=== PATIENT | male | born 1960 | race Caucasian/White ===

== ENCOUNTER 2019-04-23 09:42 | Emergency (ER) | payer BC ==
[2019-04-23] MEDS ORDERED: Sodium Chloride 0.9% 1,000 ML IV ONE (10:12)
[2019-04-23] MEDS ORDERED: Ketorolac 30 MG/ML SDV IVPUSH ONE (10:12)
--- NOTE | 2019-04-23 10:47 | EDM.PDOC ---
ED HPI GENERAL MEDICAL PROBLEM - General Chief Complaint: Genitourinary Problem Stated Complaint: POSSIBLE INFECTION Time Seen by Provider: 04/23/19 09:55 Source of Information: Reports: Patient History Limitations: Reports: No Limitations - History of Present Illness INITIAL COMMENTS - FREE TEXT/NARRATIVE: HISTORY AND PHYSICAL: History of present illness: Patient is a 58-year-old male presents to the ED today with concern of left testicular swelling and pain 1 week. Patient states that the swelling has been coming and going over the course of the week that starting yesterday with more severe and painful. Patient states starting today he feels more tired and run down due to this left testicular swelling. Patient states he has a history of autonomic dysfunction and has to self catheter due to this. Patient states he sees a urologist out of [place] and has gone to [place] for this issue. Patient denies any other health history or any other symptoms or concerns. Patient denies fever, chills, chest pain, shortness of breath, or cough. Denies headache, neck stiff ness, change in vision, syncope, or near syncope. Denies nausea, vomiting, abdominal pain, diarrhea, constipation, or dysuria. Has not noted any blood in urine or stool. Patient has been eating and drinking appropriately. Review of systems: As per history of present illness and below otherwise all systems reviewed and negative. Past medical history: As per history of present illness and as reviewed below otherwise noncontributory. Surgical history: As per history of present illness and as reviewed below otherwise noncontributory. Social history: See social history for further information Family history: As per history of present illness and as reviewed below otherwise noncontributory. Physical exam: General: Patient is alert, oriented, and in no acute distress. Patient laying comfortably on exam table and tired appearing. HEENT: Atraumatic, normocephalic, pupils equal and reactive bilaterally, negative for conjunctival pallor or scleral icterus, mucous membranes moist, TMs normal bilaterally, throat clear, neck supple, nontender, trachea midline. No drooling or trismus noted. No meningeal signs. No hot potato voice noted. Lungs: Clear to auscultation, breath sounds equal bilaterally, chest nontender. Heart: S1S2, regular rate and rhythm without overt murmur Abdomen: Soft, nondistended, nontender. Negative for masses or hepatosplenomegaly. Negative for costovertebral tenderness. Pelvis: Stable nontender. Genitourinary: The left testicle is severely edematous and erythematous with severe pain with palpation. The testicle is firm and exam is limited due to pain and discomfort. The right testicle is nontender without masses. Erythema does not tract into the perineum and no pain with palpation of perineum. No penile drainage. Rectal: Deferred. Skin: Intact, warm, dry. No lesions or rashes noted. Extremities: Atraumatic, negative for cords or calf pain. Neurovascular unremarkable. Neuro: Awake, alert, oriented. Cranial nerves II through XII unremarkable. Cerebellum unremarkable. Motor and sensory unremarkable throughout. Exam nonfocal. Notes: Dr. Wilcox directly involved in patient care. Dr. Roe, urology title one teacher, consulted on patient and patients case thoroughly discussed with him. Per his recommendations will send patient home with Keflex 500 mg to take 4 times a day for a week as well as Indocin 50 mg 3 times a day for 7 days. Also to send urine for culture and have patient follow-up with Dr. Roe on Friday. Voices understanding and is agreeable to plan of care. Denies any further questions or concerns at this time. Diagnostics: CBC, CMP, UA, urine culture, lactate, blood cultures 2, scrotal with contents ultrasound Therapeutics: NS, Toradol, Rocephin Prescription: Keflex, Indocin Impression: Left epididymo-orchitis Leukocytosis Left hydrocele Plan: 1. Take medication as prescribed. You can also use Tylenol as directed for pain and discomfort. 2. Follow-up with the urologist, Dr. Roe on Friday. Call Friday to set up an appointment time. The number has been provided to you above. 3. Return to the ED as needed and as discussed. Definitive disposition and diagnosis as appropriate pending reevaluation and review of above. testicle-left Pain Score (Numeric/FACES): 0 - Related Data Allergies Allergy/AdvReac Type Severity Reaction Status Date / Time No Known Allergies Allergy Verified 05/17/16 17:39 Home Meds: Home Meds Ciprofloxacin [Ciprofloxacin HCl] 500 mg PO BID 04/23/19 [History] Past Medical History Other Gastrointestinal History: gallstones found on CT at [place] Genitourinary History: Reports: Neurogenic Bladder, UTI, Recurrent - Infectious Disease History Infectious Disease History: Reports: Chicken Pox - Past Surgical History Male Surgical History: Reports: TURP-Transurethral Resection of Prostate Musculoskeletal Surgical History: Reports: Knee Replacement, Other (See Below) Other Musculoskeletal Surgeries/Procedures:: back surgery Social & Family History - Family History Family Medical History: Noncontributory - Tobacco Use Smoking Status *Q: Never Smoker - Recreational Drug Use Recreational Drug Use: No ED ROS GENERAL - Review of Systems Review Of Systems: ROS reveals no pertinent complaints other than HPI. ED EXAM, GENERAL - Physical Exam Exam: See Below (See dictation) Course - Vital Signs Last Recorded V/S: Last Vital Signs Temp 37.2 C 04/23/19 12:46 Pulse 71 04/23/19 12:46 Resp 18 04/23/19 12:46 BP 108/51 L 04/23/19 12:46 Pulse Ox 92 L 04/23/19 12:46 - Orders/Labs/Meds Orders: Active Orders 24 hr Category Date Time Status Matos Catheter Insertion [Insert Urinary Catheter] [OM. Care 04/23/19 12:35 Ordered PC] Stat Urinary Catheter Assessment [RC] ASDIRECTED Care 04/23/19 12:49 Active Scrotal Duplex Ltd [US] Stat Exams 04/23/19 10:14 Taken CULTURE BLOOD [BC] Stat Lab 04/23/19 11:35 Received CULTURE BLOOD [BC] Stat Lab 04/23/19 11:41 Received CULTURE URINE [RM] Stat Lab 04/23/19 12:40 Received Blood Culture x2 Reflex Set [OM.PC] Stat Oth 04/23/19 10:12 Ordered Labs: Laboratory Tests 04/23/19 04/23/19 04/23/19 Range/Units 11:41 11:41 11:41 WBC 22.78 H (4.0-11.0) K/uL RBC 4.59 (4.50-5.90) M/uL Hgb 13.3 (13.0-17.0) g/dL Hct 39.8 (38.0-50.0) % MCV 86.7 (80.0-98.0) fL MCH 29.0 (27.0-32.0) pg MCHC 33.4 (31.0-37.0) g/dL RDW Std Deviation 46.6 (28.0-62.0) fl RDW Coeff of Simone 15 (11.0-15.0) % Plt Count 247 (150-400) K/uL MPV 9.20 (7.40-12.00) fL Add Manual Diff YES Neutrophils % (Manual) 84 H (48.0-80.0) % Band Neutrophils % 7 % Lymphocytes % (Manual) 5 L (16.0-40.0) % Monocytes % (Manual) 4 (0.0-15.0) % Nucleated RBC % 0.0 /100WBC Absolute Seg Neuts 19.1 H (1.4-5.7) Band Neutrophils # 1.6 Lymphocytes # (Manual) 1.1 (0.6-2.4) Monocytes # (Manual) 0.9 H (0.0-0.8) Nucleated RBCs # 0 K/uL Lactate 0.7 (0.20-2.00) mmol/L Sodium 134 L (136-148) mmol/L Potassium 3.7 (3.5-5.1) mmol/L Chloride 103 (98-107) mmol/L Carbon Dioxide 21.2 (21.0-32.0) mmol/L BUN 14 (7.0-18.0) mg/dL Creatinine 1.1 (0.8-1.3) mg/dL Est Cr Clr Drug Dosing 84.07 mL/min Estimated GFR (MDRD) > 60.0 ml/min Glucose 117 H (74-106) mg/dL Calcium 7.9 L (8.5-10.1) mg/dL Total Bilirubin 1.6 H (0.2-1.0) mg/dL AST 12 L (15-37) IU/L ALT 25 (14-63) IU/L Alkaline Phosphatase 51 (46-116) U/L Total Protein 6.2 L (6.4-8.2) g/dL Albumin 3.0 L (3.4-5.0) g/dL Globulin 3.2 (2.6-4.0) g/dL Albumin/Globulin Ratio 0.9 (0.9-1.6) Urine Color Urine Appearance Urine pH (5.0-8.0) Ur Specific Ada (1.001-1.035) Urine Protein (NEGATIVE) mg/dL Urine Glucose (UA) (NEGATIVE) mg/dL Urine Ketones (NEGATIVE) mg/dL Urine Occult Blood (NEGATIVE) Urine Nitrite (NEGATIVE) Urine Bilirubin (NEGATIVE) Urine Urobilinogen (<2.0) EU/dL Ur Leukocyte Esterase (NEGATIVE) Urine RBC (0-2/HPF) Urine WBC (0-5/HPF) Ur Squamous Epith Cells Urine Bacteria (NEGATIVE) Urine Mucus (NONE-MOD) 04/23/19 Range/Units 12:40 WBC (4.0-11.0) K/uL RBC (4.50-5.90) M/uL Hgb (13.0-17.0) g/dL Hct (38.0-50.0) % MCV (80.0-98.0) fL MCH (27.0-32.0) pg MCHC (31.0-37.0) g/dL RDW Std Deviation (28.0-62.0) fl RDW Coeff of Simone (11.0-15.0) % Plt Count (150-400) K/uL MPV (7.40-12.00) fL Add Manual Diff Neutrophils % (Manual) (48.0-80.0) % Band Neutrophils % % Lymphocytes % (Manual) (16.0-40.0) % Monocytes % (Manual) (0.0-15.0) % Nucleated RBC % /100WBC Absolute Seg Neuts (1.4-5.7) Band Neutrophils # Lymphocytes # (Manual) (0.6-2.4) Monocytes # (Manual) (0.0-0.8) Nucleated RBCs # K/uL Lactate (0.20-2.00) mmol/L Sodium (136-148) mmol/L Potassium (3.5-5.1) mmol/L Chloride (98-107) mmol/L Carbon Dioxide (21.0-32.0) mmol/L BUN (7.0-18.0) mg/dL Creatinine (0.8-1.3) mg/dL Est Cr Clr Drug Dosing mL/min Estimated GFR (MDRD) ml/min Glucose (74-106) mg/dL Calcium (8.5-10.1) mg/dL Total Bilirubin (0.2-1.0) mg/dL AST (15-37) IU/L ALT (14-63) IU/L Alkaline Phosphatase (46-116) U/L Total Protein (6.4-8.2) g/dL Albumin (3.4-5.0) g/dL Globulin (2.6-4.0) g/dL Albumin/Globulin Ratio (0.9-1.6) Urine Color YELLOW Urine Appearance HAZY Urine pH 8.5 H (5.0-8.0) Ur Specific Ada 1.010 (1.001-1.035) Urine Protein NEGATIVE (NEGATIVE) mg/dL Urine Glucose (UA) NEGATIVE (NEGATIVE) mg/dL Urine Ketones NEGATIVE (NEGATIVE) mg/dL Urine Occult Blood NEGATIVE (NEGATIVE) Urine Nitrite NEGATIVE (NEGATIVE) Urine Bilirubin NEGATIVE (NEGATIVE) Urine Urobilinogen 2.0 H (<2.0) EU/dL Ur Leukocyte Esterase SMALL H (NEGATIVE) Urine RBC 0-2 (0-2/HPF) Urine WBC 6-8 (0-5/HPF) Ur Squamous Epith Cells FEW Urine Bacteria FEW (NEGATIVE) Urine Mucus LIGHT (NONE-MOD) Meds: Medications Discontinued Medications Generic Name Dose Route Start Last Admin Trade Name Cristiano PRN Reason Stop Dose Admin Sodium Chloride 1,000 mls @ 999 mls/hr 04/23/19 10:12 04/23/19 10:24 Normal Saline IV 04/23/19 11:12 999 mls/hr STAT ONE Administration Ceftriaxone Sodium 1 gm/ 50 mls @ 200 mls/hr 04/23/19 12:39 04/23/19 13:09 Sodium Chloride IV 04/23/19 12:53 Not Given ONETIME ONE Sodium Chloride Confirm 04/23/19 12:56 04/23/19 13:09 Normal Saline Administered 04/23/19 12:57 Not Given Dose 50 mls @ as directed .ROUTE .STK-MED ONE Sodium Chloride Confirm 04/23/19 12:59 04/23/19 13:09 Normal Saline Administered 04/23/19 13:00 Not Given Dose 50 mls @ as directed .ROUTE .STK-MED ONE Ceftriaxone Sodium 1 gm/ 50 mls @ 100 mls/hr 04/23/19 13:00 04/23/19 13:08 Sodium Chloride IV 04/23/19 13:29 100 mls/hr ONETIME ONE Administration Ketorolac Tromethamine 30 mg 04/23/19 10:12 04/23/19 10:26 Toradol IVPUSH 04/23/19 10:13 30 mg ONETIME ONE Administration Departure - Departure Time of Disposition: 13:01 Disposition: Home, Self-Care 01 Clinical Impression: Epididymo-orchitis, acute, Left hydrocele Leukocytosis Qualifiers: Leukocytosis type: unspecified Qualified Code(s): D72.829 - Elevated white blood cell count, unspecified - Discharge Information Instructions: Hydrocele, Adult, Orchitis Referrals: PCP,Unknown [Primary Care Provider] - Forms: ED Department Discharge Additional Instructions: The following information is given to patients seen in the emergency department who are being discharged to home. This information is to outline your options for follow-up care. We provide all patients seen in our emergency department with a follow-up referral. The need for follow-up, as well as the timing and circumstances, are variable depending upon the specifics of your emergency department visit. If you don't have a primary care physician on staff, we will provide you with a referral. We always advise you to contact your personal physician following an emergency department visit to inform them of the circumstance of the visit and for follow-up with them and/or the need for any referrals to a consulting specialist. The emergency department will also refer you to a specialist when appropriate. This referral assures that you have the opportunity for follow-up care with a specialist. All of these measure are taken in an effort to provide you with optimal care, which includes your follow-up. Under all circumstances we always encourage you to contact your private physician who remains a resource for coordinating your care. When calling for follow-up care, please make the office aware that this follow-up is from your recent emergency room visit. If for any reason you are refused follow-up, please contact the [facility] Emergency Department at and asked to speak to the emergency department charge nurse. [facility] [address] [place] [id number] [address] [facility] - Urology [address] [place] [id number] 1. Take medication as prescribed. You can also use Tylenol as directed for pain and discomfort. 2. Follow-up with the urologist, Dr. Roe on Friday. Call Friday to set up an appointment time. The number has been provided to you above. 3. Return to the ED as needed and as discussed. - My Orders Last 24 Hours: My Active Orders 04/23/19 10:12 Blood Culture x2 Reflex Set [OM.PC] Stat 04/23/19 10:14 Scrotal Duplex Ltd [US] Stat 04/23/19 11:35 CULTURE BLOOD [BC] Stat 04/23/19 11:41 CULTURE BLOOD [BC] Stat 04/23/19 12:35 Matos Catheter Insertion [Insert Urinary Catheter] [OM.PC] Stat 04/23/19 12:40 CULTURE URINE [RM] Stat 04/23/19 12:49 Urinary Catheter Assessment [RC] ASDIRECTED - Assessment/Plan Last 24 Hours: My Active Orders 04/23/19 10:12 Blood Culture x2 Reflex Set [OM.PC] Stat 04/23/19 10:14 Scrotal Duplex Ltd [US] Stat 04/23/19 11:35 CULTURE BLOOD [BC] Stat 04/23/19 11:41 CULTURE BLOOD [BC] Stat 04/23/19 12:35 Matos Catheter Insertion [Insert Urinary Catheter] [OM.PC] Stat 04/23/19 12:40 CULTURE URINE [RM] Stat 04/23/19 12:49 Urinary Catheter Assessment [RC] ASDIRECTED
[2019-04-23 12:09] LABS: BLOOD UREA NITROGEN,BUN 14 mg/dL (7.0-18.0); CARBON DIOXIDE,CO2 21.2 mmol/L (21.0-32.0); CHLORIDE,CL 103 mmol/L (98-107); GLUCOSE RANDOM 117 mg/dL (74-106); POTASSIUM,K 3.7 mmol/L (3.5-5.1); SODIUM,NA 134 mmol/L (136-148)
[2019-04-23] MEDS ORDERED: cefTRIAXone 1 GM in Sodium Chloride 0.9% 50 ML IV ONE ×2 (12:39→13:00)
[2019-04-23 12:46] VITALS: PULSE 71
[2019-04-23] MEDS ORDERED: Sodium Chloride 0.9% 50 ML ONE ×2 (12:56→12:59)
--- NOTE | 2019-04-23 16:47 | US ---
INDICATION: Left testicular pain for several days, increased today. TECHNIQUE: Conventional two-dimensional grayscale ultrasound of the scrotum as well color-flow and pulsed Doppler of the testes. COMPARISON: None. FINDINGS: The right testis measures 4.2 x 3.3 x 2.6 cm and the left 5.6 x 3.8 x 3.7 cm. The testicular parenchyma is normal in echogenicity. Color flow Doppler demonstrates mild left epididymal and testicular hyperemia, consistent with epididymo-orchitis. The left epididymis is enlarged. No other epididymal abnormality is demonstrated. A hydrocele of small to moderate size is noted on the left. Fluid is present in the right scrotum but the quadrant the does not qualify as a hydrocele. No varicocele is apparent. IMPRESSION: Apparent left epididymo-orchitis and left hydrocele of small to moderate size. Dictated by Constantin Hawley MD @ Apr 23 2019 11:30AM Signed by Dr. Constantin Hawley @ Apr 23 2019 11:41AM Dictated by: Constantin Hawley MD 04/23/19 at 1141 MTDD
[2019-04-23 18:01] VITALS: BP 109/49
== END 2019-04-23 14:05 | disposition home or self-care (01) ==
LOC: MW.ED 09:42
DX: N45.3 Epididymo-orchitis (principal); N43.3 Hydrocele, unspecified; D72.829 Elevated white blood cell count, unspecified; Z79.899 Other long term (current) drug therapy
CPT/HCPCS: 36415; 76870; 80053; 81001; 83605; 85025; 87040; 87086; 93976; 96361; 96365; 96375; 99284; J0696; J1885; J7040; J7050

== ENCOUNTER 2019-05-06 20:18 | Emergency (ER) | payer BC ==
[2019-05-06] MEDS ORDERED: Sodium Chloride 0.9% 10 ML Syringe FLUSH PRN (20:55)
[2019-05-06] MEDS ORDERED: Sodium Chloride 0.9% 2.5 ML Syringe FLUSH PRN (20:55)
--- NOTE | 2019-05-06 21:07 | EDM.PDOC ---
ED HPI GENERAL MEDICAL PROBLEM - General Chief Complaint: General Stated Complaint: DISORIENTED Time Seen by Provider: 05/06/19 20:49 Source of Information: Reports: Patient History Limitations: Reports: No Limitations - History of Present Illness INITIAL COMMENTS - FREE TEXT/NARRATIVE: HISTORY AND PHYSICAL: History of present illness: Patient is a 58-year-old male presents to the ED via EMS with complaint of syncopal episode. Family member states that they were sitting at a table when patient passed out for 20-25 minutes. Patient states that he felt dizzy and lights got bright right before he passed out. As soon as ambulance arrived and he was put on the stretcher he regained consciousness. He states he is feeling well now. He denies chest pain, shortness of breath, abdominal pain, nausea, vomiting, diarrhea, fevers, chills. He has a history of autonomic neuropathy and has had syncopal episodes in the past but usually occurs after standing and only briefly. He notes that he does tend to pass out when he has an infection. He is currently taking antibiotics for a UTI. He does straight cath due to the autonomic neuropathy. Review of systems: As per history of present illness and below otherwise all systems reviewed and negative. Past medical history: As per history of present illness and as reviewed below otherwise noncontributory. Surgical history: As per history of present illness and as reviewed below otherwise noncontributory. Social history: No reported history of drug or alcohol abuse. Family history: As per history of present illness and as reviewed below otherwise noncontributory. Physical exam: General: Patient sitting comfortably in no acute distress and nontoxic appearing HEENT: Atraumatic, normocephalic, pupils reactive, negative for conjunctival pallor or scleral icterus, mucous membranes moist, throat clear, neck supple, nontender, trachea midline. No meningeal signs. Lungs: Clear to auscultation, breath sounds equal bilaterally, chest nontender. Heart: S1S2, regular, negative for clicks, rubs, or overt murmur. Abdomen: Soft, nondistended, nontender. Negative for masses or hepatosplenomegaly. Negative for costovertebral tenderness. No rigidity, rebound , guarding. Pelvis: Stable nontender. Genitourinary: Deferred. Rectal: Deferred. Extremities: Atraumatic, negative for cords or calf pain. Neurovascular unremarkable. Neuro: Awake, alert, oriented. Cranial nerves II through XII unremarkable. Cerebellum unremarkable. Motor and sensory unremarkable throughout. Exam nonfocal. Notes: Patient offered admission for observation which he declined at this time. Diagnostics: CBC, CMP, Troponin, TSH, UA, EKG, Head CT Therapeutics: 1L NS IV Prescriptions: Impression: Syncope Plan: Follow up with primary care provider Return to ED as needed as discussed Definitive disposition and diagnosis as appropriate pending reevaluation and review of above. Treatments OPAL POLISHER: Reports: IV/IO - Related Data Allergies Allergy/AdvReac Type Severity Reaction Status Date / Time No Known Allergies Allergy Verified 05/06/19 20:34 Home Meds: Home Meds Ciprofloxacin [Ciprofloxacin HCl] 500 mg PO BID 04/23/19 [History] Past Medical History HEENT History: Reports: Impaired Vision, Other (See Below) Other HEENT History: wears glasses Other Gastrointestinal History: gallstones found on CT at [place] Genitourinary History: Reports: Neurogenic Bladder, UTI, Recurrent Endocrine/Metabolic History: Reports: Obesity/BMI 30+ - Infectious Disease History Infectious Disease History: Reports: Chicken Pox - Past Surgical History Male Surgical History: Reports: TURP-Transurethral Resection of Prostate Musculoskeletal Surgical History: Reports: Knee Replacement, Other (See Below) Other Musculoskeletal Surgeries/Procedures:: back surgery Social & Family History - Family History Family Medical History: Noncontributory - Tobacco Use Smoking Status *Q: Never Smoker - Recreational Drug Use Recreational Drug Use: No ED ROS GENERAL - Review of Systems Review Of Systems: ROS reveals no pertinent complaints other than HPI. ED EXAM, GENERAL - Physical Exam Exam: See Below (see dictation) Course - Vital Signs Last Recorded V/S: Last Vital Signs Temp 96.3 F 05/06/19 20:18 Pulse 62 05/06/19 20:59 Resp 14 05/06/19 20:59 BP 122/70 05/06/19 20:59 Pulse Ox 93 L 05/06/19 20:59 - Orders/Labs/Meds Orders: Active Orders 24 hr Category Date Time Status Cardiac Monitoring [RC] . DIRECTED Care 05/06/19 20:55 Active EKG 12 Lead [EKG Documentation Completion] [RC] STAT Care 05/06/19 20:44 Active Orthostatic Vital Signs [RC] ASDIRECTED Care 05/06/19 20:55 Active Oxygen Therapy, ED [RC] ASDIRECTED Care 05/06/19 20:55 Active Pulse Oximetry [RC] ASDIRECTED Care 05/06/19 20:55 Active Sodium Chloride 0.9% [Saline Flush] Med 05/06/19 20:55 Active 10 ml FLUSH ASDIRECTED PRN Sodium Chloride 0.9% [Saline Flush] Med 05/06/19 20:55 Active 2.5 ml FLUSH ASDIRECTED PRN Saline Lock Insert [OM.PC] Stat Oth 05/06/19 20:55 Ordered Medication Orders Sodium Chloride (Saline Flush) 10 ml FLUSH ASDIRECTED PRN PRN Reason: Keep Vein Open Last Admin: 05/06/19 21:01 Dose: 10 ml Sodium Chloride (Saline Flush) 2.5 ml FLUSH ASDIRECTED PRN PRN Reason: Keep Vein Open Last Admin: 05/06/19 21:02 Dose: 2.5 ml Labs: Laboratory Tests 05/06/19 05/06/19 05/06/19 Range/Units 20:48 20:55 22:42 WBC 9.35 (4.0-11.0) K/uL RBC 4.93 (4.50-5.90) M/uL Hgb 14.2 (13.0-17.0) g/dL Hct 43.0 (38.0-50.0) % MCV 87.2 (80.0-98.0) fL MCH 28.8 (27.0-32.0) pg MCHC 33.0 (31.0-37.0) g/dL RDW Std Deviation 46.8 (28.0-62.0) fl RDW Coeff of Simone 15 (11.0-15.0) % Plt Count 259 (150-400) K/uL MPV 9.40 (7.40-12.00) fL Neut % (Auto) 68.2 (48.0-80.0) % Lymph % (Auto) 20.2 (16.0-40.0) % [place] % (Auto) 9.2 (0.0-15.0) % Eos % (Auto) 1.8 (0.0-7.0) % Baso % (Auto) 0.6 (0.0-1.5) % Neut # (Auto) 6.4 H (1.4-5.7) K/uL Lymph # (Auto) 1.9 (0.6-2.4) K/uL [place] # (Auto) 0.9 H (0.0-0.8) K/uL Eos # (Auto) 0.2 (0.0-0.7) K/uL Baso # (Auto) 0.1 (0.0-0.1) K/uL Nucleated RBC % 0.0 /100WBC Nucleated RBCs # 0 K/uL Sodium 140 (136-148) mmol/L Potassium 4.1 (3.5-5.1) mmol/L Chloride 103 (98-107) mmol/L Carbon Dioxide 24.6 (21.0-32.0) mmol/L BUN 18 (7.0-18.0) mg/dL Creatinine 1.6 H (0.8-1.3) mg/dL Est Cr Clr Drug Dosing 57.80 mL/min Estimated GFR (MDRD) 44.5 ml/min Glucose 119 H (74-106) mg/dL Calcium 9.3 (8.5-10.1) mg/dL Total Bilirubin 0.9 (0.2-1.0) mg/dL AST 23 (15-37) IU/L ALT 44 (14-63) IU/L Alkaline Phosphatase 82 (46-116) U/L Troponin I < 0.050 (0.000-0.056) ng/mL Total Protein 7.4 (6.4-8.2) g/dL Albumin 3.5 (3.4-5.0) g/dL Globulin 3.9 (2.6-4.0) g/dL Albumin/Globulin Ratio 0.9 (0.9-1.6) TSH 3rd Generation 2.78 (0.36-3.74) uIU/mL Urine Color YELLOW Urine Appearance CLEAR Urine pH 6.5 (5.0-8.0) Ur Specific [place] 1.010 (1.001-1.035) Urine Protein TRACE H (NEGATIVE) mg/dL Urine Glucose (UA) NEGATIVE (NEGATIVE) mg/dL Urine Ketones NEGATIVE (NEGATIVE) mg/dL Urine Occult Blood TRACE-INTACT H (NEGATIVE) Urine Nitrite NEGATIVE (NEGATIVE) Urine Bilirubin NEGATIVE (NEGATIVE) Urine Urobilinogen 0.2 (<2.0) EU/dL Ur Leukocyte Esterase NEGATIVE (NEGATIVE) Urine RBC 1-2 (0-2/HPF) Urine WBC 0-1 (0-5/HPF) Ur Epithelial Cells RARE (NONE-FEW) Urine Bacteria RARE (NEGATIVE) Meds: Medications Generic Name Dose Route Start Last Admin Trade Name Freq PRN Reason Stop Dose Admin Sodium Chloride 10 ml 05/06/19 20:55 05/06/19 21:01 Saline Flush FLUSH 10 ml ASDIRECTED PRN Administration Keep Vein Open Sodium Chloride 2.5 ml 05/06/19 20:55 05/06/19 21:02 Saline Flush FLUSH 2.5 ml ASDIRECTED PRN Administration Keep Vein Open Departure - Departure Time of Disposition: 22:52 Disposition: Home, Self-Care 01 Condition: Good Clinical Impression: Syncope - Discharge Information Referrals: PCP,None [Primary Care Provider] - Forms: ED Department Discharge Additional Instructions: The following information is given to patients seen in the emergency department who are being discharged to home. This information is to outline your options for follow-up care. We provide all patients seen in our emergency department with a follow-up referral. The need for follow-up, as well as the timing and circumstances, are variable depending upon the specifics of your emergency department visit. If you don't have a primary care physician on staff, we will provide you with a referral. We always advise you to contact your personal physician following an emergency department visit to inform them of the circumstance of the visit and for follow-up with them and/or the need for any referrals to a consulting specialist. The emergency department will also refer you to a specialist when appropriate. This referral assures that you have the opportunity for follow-up care with a specialist. All of these measure are taken in an effort to provide you with optimal care, which includes your follow-up. Under all circumstances we always encourage you to contact your private physician who remains a resource for coordinating your care. When calling for follow-up care, please make the office aware that this follow-up is from your recent emergency room visit. If for any reason you are refused follow-up, please contact the [facility] Emergency Department at and asked to speak to the emergency department charge nurse. [facility] [address] [place] [address] [place] [id number] [address] [id number] Follow up with primary care provider Return to ED as needed as discussed
[2019-05-06 21:24] LABS: BLOOD UREA NITROGEN,BUN 18 mg/dL (7.0-18.0); CARBON DIOXIDE,CO2 24.6 mmol/L (21.0-32.0); CHLORIDE,CL 103 mmol/L (98-107); GLUCOSE RANDOM 119 mg/dL (74-106); POTASSIUM,K 4.1 mmol/L (3.5-5.1); SODIUM,NA 140 mmol/L (136-148)
--- NOTE | 2019-05-06 21:25 | CT ---
INDICATION: Found unresponsive TECHNIQUE: Head CT without contrast. COMPARISON: None FINDINGS: CSF spaces: Within normal limits for age. 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 Brain parenchyma: Normal doran-white junction. No sign of mass, hemorrhage, or midline shift. Skull base and calvarium: The visualized paranasal sinuses and mastoid air cells demonstrate no acute or significant findings. The visualized orbits are grossly unremarkable. No skull fractures. IMPRESSION: No acute abnormality. Please note that all CT scans at this facility use dose modulation, iterative reconstruction, and/or weight-based dosing when appropriate to reduce radiation dose to as low as reasonably achievable. Dictated by Alice Walker MD @ May 06 2019 9:25PM Signed by Dr. Alice Walker @ May 06 2019 9:25PM
--- NOTE | 2019-05-06 21:56 | CR ---
INDICATION: Unresponsive and nonverbal TECHNIQUE: Chest 1 view COMPARISON: None FINDINGS: Cardiovascular and mediastinum: Heart size and vasculature are normal in caliber and appearance. Lungs and pleural spaces: Lungs are clear. No sign of infiltrate or mass. No sign of pleural effusion. No pneumothorax. Bones and soft tissues: No significant findings. IMPRESSION: No acute or significant findings. Dictated by Kenneth Posada MD @ May 06 2019 9:53PM Signed by Dr. Kenneth Posada @ May 06 2019 9:53PM
[2019-05-06 23:09] VITALS: BP 111/60; PULSE 81
== END 2019-05-06 23:09 | disposition home or self-care (01) ==
LOC: MW.ED 20:18
DX: R55 Syncope and collapse (principal); E66.9 Obesity, unspecified; Z68.38 Body mass index [BMI] 38.0-38.9, adult
CPT/HCPCS: 36415; 70450; 70450-26; 71045; 71045-26; 80053; 81001; 84443; 84484; 85025; 93005; 99283; 99285-25

== ENCOUNTER 2019-11-25 11:01 | Emergency (ER) | payer BC, OTHER ==
[2019-11-25] MEDS ORDERED: Diphtheria,Pertussis(Acell),Tetanus Vaccine 0.5 ML Syringe IM ONE (11:03)
[2019-11-25] MEDS ORDERED: fentaNYL 50 MCG/ML SDV IVPUSH ONE ×3 (11:03→12:17)
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
[2019-11-25] MEDS ORDERED: Iopamidol 755 MG/ML 500 ML Multipack Bottle IVPUSH STA (11:36)
--- NOTE | 2019-11-25 11:44 | CT ---
CT cervical spine Technique: Multiple axial sections were obtained from above C1 inferiorly through the T1-2 disc level. Reconstructed coronal and sagittal images were obtained. Comparison: No prior cervical spine imaging is available. Findings: Facial trauma is noted which will be described on facial CT exam. Nondisplaced fracture is noted at the base of the dens process of C2. No additional fracture is appreciated. Scattered degenerative change is noted. No abnormal subluxation is seen. Impression: 1. Nondisplaced fracture involving the base of the dens of C2. This is an unstable injury. 2. Scattered degenerative change. No other acute abnormality is seen within the cervical spine. Diagnostic code #5 This report was dictated in MDT
[2019-11-25 11:49] LABS: BLOOD UREA NITROGEN,BUN 21 mg/dL (7.0-18.0); CARBON DIOXIDE,CO2 23.8 mmol/L (21.0-32.0); CHLORIDE,CL 105 mmol/L (98-107); GLUCOSE RANDOM 130 mg/dL (74-106); POTASSIUM,K 4.2 mmol/L (3.5-5.1); SODIUM,NA 140 mmol/L (136-148)
[2019-11-25] MEDS ORDERED: Sodium Chloride 0.9% 1,000 ML IV ONE (12:00)
--- NOTE | 2019-11-25 12:02 | CT ---
CT facial bones Technique: Multiple axial sections through the facial bones were obtained. Reconstructed coronal and sagittal images were obtained. Findings: Soft tissue swelling is noted around the right periorbital region. Comminuted fracture is noted within the right zygomatic arch with minimal displacement. Single fractur is e noted within the left zygomatic arch. Displaced fracture is noted within the mandible on the left side of midline. Displacement measures 6.7 mm. Mandibular condyle slightly shifted laterally within the temporomandibular joint on the right side. 2 fractures are seen within the left squamous portion of the temporal bone as well as fracture within the squamous portion of the right temporal bone. Soft tissue air is seen within the scalp. Small amount of air noted within both temporal lobes. Fluid is seen within the maxillary and ethmoid as well as sphenoid sinus most likely representing blood. No fractures are seen within the paranasal sinuses. Fracture identified within the lateral right orbital wall with small amount of air is seen within the right orbit. No left-sided orbital fracture is definitely appreciated. Fracture is noted at the base of the dens of C2. Impression: 1. Diffuse periorbital soft tissue swelling on the right side. 2. Zygomatic arch fractures on both sides. 3. Displaced fracture within the anterior left side of the mandible. Mild subluxation of the right temporomandibular joint is seen. 4. Nondisplaced fracture within the right lateral orbital wall. 5. C2 fracture involving the dens. 6. Fractures involving the squamous portions of both temporal bones. Diagnostic code #5 This report was dictated in MDT
--- NOTE | 2019-11-25 12:02 | CT ---
Head CT Technique: Multiple axial sections through the brain were obtained. Intravenous contrast was not utilized. Findings: Diffuse scalp injury is seen. Small amount of subdural blood is seen within the right frontal region. Thickness is approximately 2-3 mm. Extra-axial blood is also noted within the right temporal region. Small amount of blood extends into the sulci of the right temporal lobe. No other intracranial hemorrhage is seen. No midline shift or mass is seen. Facial trauma is noted which will be described on facial CT exam. Fracture noted within the right temporal bone with very minimal displacement. 2 adjacent fractures are noted within the left temporal bone. Minimal intracranial air is seen within the left temporal region. Within both temporal regions. Impression: 1. Facial bone trauma which will be described on CT facial bone study. 2. Small subdural hematoma is noted within the right frontal region. Small amount of subdural blood is noted within the right temporal region as well as a small amount of subarachnoid blood extending into the sulci within the right temporal lobe. 3. No midline shift is seen. 4. Temporal bone fractures as noted above. Small amount of intracranial air is noted within both temporal regions. Diagnostic code #5 This report was dictated in MDT
[2019-11-25] MEDS ORDERED: ceFAZolin 1 GM in Premix Bag 1 BAG IV ONE (12:11)
[2019-11-25 12:27] VITALS: BP 178/97; PULSE 57
[2019-11-25] MEDS ORDERED: Midazolam 1 MG/ML 2 ML SDV ONE (12:30)
--- NOTE | 2019-11-25 12:30 | CR ---
Chest: Supine portable view of the chest was obtained. Comparison: Prior CT chest study of 11/25/19 and chest x-ray of 05/06/19. Heart size at the upper limits of normal. Lung markings are mildly increased which appeared to be chronic. No acute parenchymal change is appreciated. No gross bony abnormality is appreciated. Impression: 1. Nothing acute is seen on supine portable chest x-ray. Diagnostic code #2 This report was dictated in MDT
--- NOTE | 2019-11-25 12:30 | CR ---
Pelvis: AP portable view of the pelvis was obtained. Comparison: Previous CT abdomen and pelvis study performed earlier on the same day. Findings: Contrast is noted within the bladder from CT exam performed earlier. Joint spaces within both hips are maintained. Mild degenerative change is partially visualized within the spine. Bony structures are slightly osteopenic. No acute fracture or other abnormality is appreciated. Impression: 1. Findings as noted above. 2. Nothing acute is identified on AP portable chest x-ray. Diagnostic code #2 This report was dictated in MDT
--- NOTE | 2019-11-25 12:36 | CT ---
CT abdomen and pelvis Technique: Multiple axial sections were obtained from above the dome of the diaphragm inferiorly through the pubic symphysis. Intravenous contrast was utilized. No oral contrast has been given. Comparison: No prior abdominal or pelvic CT exam is available. Findings: Interstitial change is noted within both lung bases most likely chronic. Small low density finding is noted within the dome of the right lobe of the liver measuring 1.1 cm which is too small to characterize by Hounsfield unit measurements but most likely is incidental as no additional liver lesion is seen. Spleen appears within normal limits. Kidneys show symmetric contrast enhancement. Small cyst is noted within the right kidney measuring 9 mm. Smaller abnormality is seen within the upper right kidney measuring 4 mm. This also most likely represents a small cyst. Adrenal glands show no nodule. Pancreas shows no discrete abnormality. Gallbladder shows minimal increased density presumably due to gallstones. Aorta shows mild atherosclerotic calcification without aneurysm. No retroperitoneal adenopathy or mesenteric abnormalities are seen. Small fat-containing umbilical hernia is noted. No pelvic mass or adenopathy is seen. No free fluid or inflammatory change is appreciated. Appendix not visualized with certainty. Bone window settings were reviewed which shows diffuse degenerative change throughout the visualized spine. No acute osseous finding is appreciated. Impression: 1. Findings as noted above. 2. Nothing acute is appreciated on CT study of the abdomen and pelvis. Diagnostic code #2 This report was dictated in MDT
--- NOTE | 2019-11-25 12:38 | CT ---
CT chest Technique: Multiple axial sections were obtained from above the lung apices inferiorly through the lung bases. Intravenous contrast was utilized. Reconstructed coronal and sagittal images were obtained. Aorta appears within normal limits without aneurysm. No mediastinal hematoma seen. No adenopathy is identified. Mild coronary artery calcification is noted. No pericardial thickening is seen. Increased density within gallbladder presumably due to gallstones. No axillary adenopathy is seen. Lungs show no acute parenchymal change. No pleural effusions or pneumothorax are seen. No acute osseous finding is appreciated. Impression: 1. Findings as noted above. 2. Nothing acute is appreciated on CT study of the chest. Diagnostic code #2 This report was dictated in MDT
[2019-11-25] MEDS ORDERED: Midazolam 1 MG/ML 2 ML SDV IVPUSH ONE (12:42)
--- NOTE | 2019-11-25 13:01 | CR ---
Chest: Portable view of the chest was obtained. Comparison: Prior chest x-ray performed earlier on the same day (11:52 AM). Diffuse increased lung markings are again noted which are stable. Heart is slightly enlarged. Endotracheal tube is seen with tip lying slightly below the inferior clavicles in satisfactory position. Bony structures are grossly intact. Impression: 1. Tip of endotracheal tube satisfactory in position. 2. Other portions of the chest are stable from previous exam. Diagnostic code #3 This report was dictated in MDT
[2019-11-25] MEDS ORDERED: Rocuronium 50 MG/5 ML Vial IVPUSH ONE (14:07)
[2019-11-25] MEDS ORDERED: Etomidate 2 MG/ML 20 ML SDV IVPUSH ONE (14:09)
== END 2019-11-25 13:06 ==
LOC: MW.ED 11:01
DX: S06.5X0A Traumatic subdural hemorrhage without loss of consciousness, initial encounter (principal); S12.110A Anterior displaced Type II dens fracture, initial encounter for closed fracture; E66.9 Obesity, unspecified; Z68.38 Body mass index [BMI] 38.0-38.9, adult; Z23 Encounter for immunization; V86.59XA Driver of other special all-terrain or other off-road motor vehicle injured in nontraffic accident, initial encounter
CPT/HCPCS: 31500; 70450; 70486; 71045; 71260; 72125; 72170; 74177; 80053; 81003; 83735; 85025; 85610; 85730; 86850; 86900; 86901; 90471; 90715; 93005; 96365; 99291; G0390; J0330; J0690; J2250; J3010; J3490; J7030; Q9967; 99285

== ENCOUNTER 2019-12-16 11:49 | Emergency (ER) | payer BC ==
[2019-12-16] MEDS ORDERED: Sodium Chloride 0.9% 2.5 ML Syringe FLUSH PRN (12:04)
[2019-12-16] MEDS ORDERED: Sodium Chloride 0.9% 10 ML Syringe FLUSH PRN (12:04)
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
[2019-12-16 12:52] LABS: BLOOD UREA NITROGEN,BUN 13 mg/dL (7.0-18.0); CARBON DIOXIDE,CO2 26.1 mmol/L (21.0-32.0); CHLORIDE,CL 103 mmol/L (98-107); GLUCOSE RANDOM 114 mg/dL (74-106); POTASSIUM,K 3.9 mmol/L (3.5-5.1); SODIUM,NA 140 mmol/L (136-148)
[2019-12-16 14:11] VITALS: BP 156/59; PULSE 60
== END 2019-12-16 14:00 | disposition home or self-care (01) ==
LOC: MW.ED 11:49
DX: Z00.00 Encounter for general adult medical examination without abnormal findings (principal); E66.9 Obesity, unspecified; Z68.34 Body mass index [BMI] 34.0-34.9, adult
CPT/HCPCS: 36415; 51702; 80053; 81003; 84484; 85025; 93005; 99283; 99284-25

== ENCOUNTER 2020-03-23 19:39 | Emergency (ER) | payer BC, OTHER ==
[2020-03-23] MEDS ORDERED: Dexamethasone 10 MG/ML SDV PO STA (20:04)
--- NOTE | 2020-03-23 20:08 | EDM.PDOC ---
<Marcie Yo - Last Filed: 03/27/20 10:42> ED HPI GENERAL MEDICAL PROBLEM - General Chief Complaint: Respiratory Problem Stated Complaint: positive covid Time Seen by Provider: 03/23/20 19:45 Source of Information: Reports: Patient History Limitations: Reports: No Limitations - History of Present Illness INITIAL COMMENTS - FREE TEXT/NARRATIVE: HISTORY AND PHYSICAL: History of present illness: Patient is a 59-year-old male, with known COVID positive testing that was done on 11 March, who presents to the emergency room today with increased shortness of breath that started today. Patient states that he feels tired and rundown and feels more short of breath. Patient states he tested positive for COVID at [facility]. Patient states he called the clinic today and was told to come to the emergency room due to worsening symptoms. Patient states he has a history of autonomic hypotension, low heart rate and issues with his prostate. He states that he is on medication to raise his blood pressure and as well as taken medication to try to improve his heart rate but has not had much success with this. Patient denies fever, chills, chest pain. Denies headache, neck stiff ness, change in vision, syncope, or near syncope. Denies nausea, vomiting, abdominal pain, diarrhea, constipation, or dysuria. Has not noted any blood in urine or stool. Patient has been eating and drinking appropriately. Review of systems: As per history of present illness and below otherwise all systems reviewed and negative. Past medical history: As per history of present illness and as reviewed below otherwise noncontributory. Surgical history: As per history of present illness and as reviewed below otherwise noncontributory. Social history: See social history for further information Family history: As per history of present illness and as reviewed below otherwise noncontributory. Physical exam: General: Patient is alert, oriented, and in no acute distress. Patient laying comfortably on exam table. HEENT: Atraumatic, normocephalic, pupils equal and reactive bilaterally, negative for conjunctival pallor or scleral icterus, mucous membranes moist, TMs normal bilaterally, throat clear, neck supple, nontender, trachea midline. No drooling or trismus noted. No meningeal signs. No hot potato voice noted. Lungs: Patient speaking clearly without breathlessness, no wheezing or stridor, no accessory muscle use or respiratory distress. Auscultation deferred due to current COV-ID 19 outbreak. Heart: Auscultation deferred Abdomen: Nondistended. Pelvis: Stable nontender. Genitourinary: Deferred. Rectal: Deferred. Skin: Intact, warm, dry. No lesions or rashes noted. Extremities: Atraumatic, negative for cords or calf pain. Neurovascular unremarkable. Neuro: Awake, alert, oriented. Cranial nerves II through XII unremarkable. Cerebellum unremarkable. Motor and sensory unremarkable throughout. Exam nonfocal. Notes: O2 upon arrival 86%. 3L NC placed and 88%. 6L NC and 90%. Dr. Dias has assumed care of patient and will follow remaining diagnostics and disposition. Diagnostics: CBC, CMP, UA, EKG, chest x-ray, troponin, CPK, CK, PT/INR, PTT, fibrinogen, Lactate, ddimer, VBG, Ang CT Therapeutics: Oxygen, Dexamethasone Impression: Hypoxia Viral pneumonia Plan: Definitive disposition and diagnosis as appropriate pending reevaluation and review of above. no pain Pain Score (Numeric/FACES): 0 - Related Data Allergies Allergy/AdvReac Type Severity Reaction Status Date / Time No Known Allergies Allergy Verified 03/23/20 19:46 Home Meds: Home Meds Ascorbic Acid [Vitamin C] 1,000 mg PO BID 03/23/20 [History] Aspirin 325 mg PO DAILY 03/23/20 [History] Cholecalciferol (Vitamin D3) [Vitamin D3] 2,000 unit IU 03/23/20 [History] Cranberry 0 mg PO DAILY 03/23/20 [History] Fludrocortisone [Fludrocortisone Acetate] 0.1 mg PO DAILY 03/23/20 [History] Midodrine 5 mg PO BID 03/23/20 [History] Multivitamin [Multivitamins] 1 each PO DAILY 03/23/20 [History] Bailey-3/DHA/Epa/Fish Oil [Bailey 3 500 Softgel] 1 each PO DAILY 03/23/20 [History] Zinc 50 mg PO BID 03/23/20 [History] Past Medical History HEENT History: Reports: Impaired Vision, Other (See Below) Other HEENT History: wears glasses Cardiovascular History: Reports: Other (See Below) Other Cardiovascular History: Autonomic hypotension Respiratory History: Reports: None Other Gastrointestinal History: gallstones found on CT at [place] Genitourinary History: Reports: Neurogenic Bladder, UTI, Recurrent Neurological History: Reports: Neuropathy, Peripheral, Other (See Below) Other Neuro History: autonomic hypotension, inability to sweat except on head Psychiatric History: Reports: None Endocrine/Metabolic History: Reports: Obesity/BMI 30+ Hematologic History: Reports: None - Infectious Disease History Infectious Disease History: Reports: Chicken Pox - Past Surgical History HEENT Surgical History: Reports: Other (See Below) Other HEENT Surgeries/Procedures: jaw surg GI Surgical History: Reports: Appendectomy Male Surgical History: Reports: TURP-Transurethral Resection of Prostate Other Male Surgeries/Procedures: patient self caths Musculoskeletal Surgical History: Reports: Knee Replacement, Other (See Below) Other Musculoskeletal Surgeries/Procedures:: back surgery Social & Family History - Family History Family Medical History: Noncontributory - Tobacco Use Smoking Status *Q: Never Smoker - Caffeine Use Caffeine Use: Reports: None - Recreational Drug Use Recreational Drug Use: No ED ROS GENERAL - Review of Systems Review Of Systems: Comprehensive ROS is negative, except as noted in HPI. ED EXAM, GENERAL - Physical Exam Exam: See Below (see dictation) Departure - Departure Disposition: DC/Tfer to [facility] With [facility] 02 Clinical Impression: Viral pneumonia, Hypoxia - Discharge Information Referrals: PCP,None [Primary Care Provider] - Forms: ED Department Discharge Sepsis Event Note (ED) - Evaluation Sepsis Screening Result: No Definite Risk <Salvatore Dias - Last Filed: 04/04/20 07:04> Course - Vital Signs Text/Narrative:: See my separate supervisory note from the same date of service. Limited physical examination was performed due to COVID pandemic, distanced physical examination to prevent physician exposure and to preserve PPE. Vital signs reviewed. Nursing notes reviewed. Constitutional: Awake, alert, non-distressed. Head: Normocephalic, atraumatic. Eyes: No scleral icterus. Neck: Able to fully flex and extend. Fully rotates side to side. Cardiovascular: No extremity edema. Pulmonary: normal work of breathing, no accessory muscle use. Speaking in full sentences, handling secretions well. Abdomen/GI: nondistended Musculoskeletal: No deformities. Integumentary: Appropriate color for ethnicity, warm, dry, no pallor or jaundice, no rash. Neurologic: Alert, answering questions appropriately, normal speech, moving all extremities well. Psychiatric: Appropriate mood and affect, normal thought process. Last Recorded V/S: Last Vital Signs Temp 36.1 C 03/23/20 19:46 Pulse 52 L 03/23/20 23:15 Resp 22 H 03/23/20 19:46 BP 124/67 03/23/20 23:15 Pulse Ox 93 L 03/23/20 23:15 - Orders/Labs/Meds Labs: Laboratory Tests 03/23/20 03/23/20 03/23/20 Range/Units 19:56 19:56 19:56 WBC 6.91 (4.0-11.0) K/uL RBC 4.61 (4.50-5.90) M/uL Hgb 12.9 L (13.0-17.0) g/dL Hct 39.0 (38.0-50.0) % MCV 84.6 (80.0-98.0) fL MCH 28.0 (27.0-32.0) pg MCHC 33.1 (31.0-37.0) g/dL RDW Std Deviation 46.8 (28.0-62.0) fl RDW Coeff of Simone 15 (11.0-15.0) % Plt Count 299 (150-400) K/uL MPV 8.80 (7.40-12.00) fL Neut % (Auto) 68.9 (48.0-80.0) % Lymph % (Auto) 15.9 L (16.0-40.0) % [place] % (Auto) 12.3 (0.0-15.0) % Eos % (Auto) 2.6 (0.0-7.0) % Baso % (Auto) 0.3 (0.0-1.5) % Neut # (Auto) 4.8 (1.4-5.7) K/uL Lymph # (Auto) 1.1 (0.6-2.4) K/uL [place] # (Auto) 0.9 H (0.0-0.8) K/uL Eos # (Auto) 0.2 (0.0-0.7) K/uL Baso # (Auto) 0.0 (0.0-0.1) K/uL Nucleated RBC % 0.0 /100WBC Nucleated RBCs # 0 K/uL INR APTT (18.6-31.3) SEC Fibrinogen (215-411) mg/dL D-Dimer, Quantitative (0.0-0.50) mg/L FEU VBG pH (7.31-7.41) VBG pCO2 (35-45) mmHG VBG pO2 (30-40) mmHG VBG HCO3 (22-30) mEq/L VBG Total CO2 (41-51) mmol/L VBG Base Excess (-3.0-3.0) Lactate (0.20-2.00) mmol/L Sodium 134 L (136-148) mmol/L Potassium 3.8 (3.5-5.1) mmol/L Chloride 99 (98-107) mmol/L Carbon Dioxide 24.4 (21.0-32.0) mmol/L BUN 12 (7.0-18.0) mg/dL Creatinine 1.0 (0.8-1.3) mg/dL Est Cr Clr Drug Dosing 91.33 mL/min Estimated GFR (MDRD) > 60.0 ml/min Glucose 110 H (74-106) mg/dL Calcium 9.2 (8.5-10.1) mg/dL Total Bilirubin 0.8 (0.2-1.0) mg/dL AST 43 H (15-37) IU/L ALT 34 (14-63) IU/L Alkaline Phosphatase 67 (46-116) U/L Creatine Kinase 79 (26-308) U/L Troponin I < 0.050 (0.000-0.056) ng/mL C-Reactive Protein 16.50 H (0.00-0.90) mg/dL Total Protein 6.9 (6.4-8.2) g/dL Albumin 2.7 L (3.4-5.0) g/dL Globulin 4.2 H (2.6-4.0) g/dL Albumin/Globulin Ratio 0.6 L (0.9-1.6) 03/23/20 03/23/20 03/23/20 Range/Units 19:56 19:56 19:56 WBC (4.0-11.0) K/uL RBC (4.50-5.90) M/uL Hgb (13.0-17.0) g/dL Hct (38.0-50.0) % MCV (80.0-98.0) fL MCH (27.0-32.0) pg MCHC (31.0-37.0) g/dL RDW Std Deviation (28.0-62.0) fl RDW Coeff of Simone (11.0-15.0) % Plt Count (150-400) K/uL MPV (7.40-12.00) fL Neut % (Auto) (48.0-80.0) % Lymph % (Auto) (16.0-40.0) % [place] % (Auto) (0.0-15.0) % Eos % (Auto) (0.0-7.0) % Baso % (Auto) (0.0-1.5) % Neut # (Auto) (1.4-5.7) K/uL Lymph # (Auto) (0.6-2.4) K/uL [place] # (Auto) (0.0-0.8) K/uL Eos # (Auto) (0.0-0.7) K/uL Baso # (Auto) (0.0-0.1) K/uL Nucleated RBC % /100WBC Nucleated RBCs # K/uL INR 1.15 APTT 26.3 (18.6-31.3) SEC Fibrinogen 695 H (215-411) mg/dL D-Dimer, Quantitative 1.87 H (0.0-0.50) mg/L FEU VBG pH (7.31-7.41) VBG pCO2 (35-45) mmHG VBG pO2 (30-40) mmHG VBG HCO3 (22-30) mEq/L VBG Total CO2 (41-51) mmol/L VBG Base Excess (-3.0-3.0) Lactate 1.4 (0.20-2.00) mmol/L Sodium (136-148) mmol/L Potassium (3.5-5.1) mmol/L Chloride (98-107) mmol/L Carbon Dioxide (21.0-32.0) mmol/L BUN (7.0-18.0) mg/dL Creatinine (0.8-1.3) mg/dL Est Cr Clr Drug Dosing mL/min Estimated GFR (MDRD) ml/min Glucose (74-106) mg/dL Calcium (8.5-10.1) mg/dL Total Bilirubin (0.2-1.0) mg/dL AST (15-37) IU/L ALT (14-63) IU/L Alkaline Phosphatase (46-116) U/L Creatine Kinase (26-308) U/L Troponin I (0.000-0.056) ng/mL C-Reactive Protein (0.00-0.90) mg/dL Total Protein (6.4-8.2) g/dL Albumin (3.4-5.0) g/dL Globulin (2.6-4.0) g/dL Albumin/Globulin Ratio (0.9-1.6) 03/23/20 Range/Units 21:22 WBC (4.0-11.0) K/uL RBC (4.50-5.90) M/uL Hgb (13.0-17.0) g/dL Hct (38.0-50.0) % MCV (80.0-98.0) fL MCH (27.0-32.0) pg MCHC (31.0-37.0) g/dL RDW Std Deviation (28.0-62.0) fl RDW Coeff of Simone (11.0-15.0) % Plt Count (150-400) K/uL MPV (7.40-12.00) fL Neut % (Auto) (48.0-80.0) % Lymph % (Auto) (16.0-40.0) % [place] % (Auto) (0.0-15.0) % Eos % (Auto) (0.0-7.0) % Baso % (Auto) (0.0-1.5) % Neut # (Auto) (1.4-5.7) K/uL Lymph # (Auto) (0.6-2.4) K/uL [place] # (Auto) (0.0-0.8) K/uL Eos # (Auto) (0.0-0.7) K/uL Baso # (Auto) (0.0-0.1) K/uL Nucleated RBC % /100WBC Nucleated RBCs # K/uL INR APTT (18.6-31.3) SEC Fibrinogen (215-411) mg/dL D-Dimer, Quantitative (0.0-0.50) mg/L FEU VBG pH 7.40 (7.31-7.41) VBG pCO2 37 (35-45) mmHG VBG pO2 42 H (30-40) mmHG VBG HCO3 23 (22-30) mEq/L VBG Total CO2 24 L (41-51) mmol/L VBG Base Excess -2 (-3.0-3.0) Lactate (0.20-2.00) mmol/L Sodium (136-148) mmol/L Potassium (3.5-5.1) mmol/L Chloride (98-107) mmol/L Carbon Dioxide (21.0-32.0) mmol/L BUN (7.0-18.0) mg/dL Creatinine (0.8-1.3) mg/dL Est Cr Clr Drug Dosing mL/min Estimated GFR (MDRD) ml/min Glucose (74-106) mg/dL Calcium (8.5-10.1) mg/dL Total Bilirubin (0.2-1.0) mg/dL AST (15-37) IU/L ALT (14-63) IU/L Alkaline Phosphatase (46-116) U/L Creatine Kinase (26-308) U/L Troponin I (0.000-0.056) ng/mL C-Reactive Protein (0.00-0.90) mg/dL Total Protein (6.4-8.2) g/dL Albumin (3.4-5.0) g/dL Globulin (2.6-4.0) g/dL Albumin/Globulin Ratio (0.9-1.6) Meds: Medications Discontinued Medications Generic Name Dose Route Start Last Admin Trade Name Cristiano PRN Reason Stop Dose Admin Azithromycin 500 mg 03/23/20 22:03 03/23/20 22:22 Zithromax PO 03/23/20 22:04 500 mg NOW ONE Administration Dexamethasone 6 mg 03/23/20 20:04 03/23/20 21:09 Dexamethasone PO 03/23/20 20:05 Not Given NOW STA Dexamethasone 6 mg 03/23/20 20:26 03/23/20 21:06 Dexamethasone IV 03/23/20 20:27 6 mg NOW STA Administration Ceftriaxone Sodium/Dextrose 1 50 mls @ 100 mls/hr 03/23/20 21:43 03/23/20 22:20 gm/ Premix IV 03/23/20 22:12 100 mls/hr ONETIME ONE Administration Azithromycin 500 mg/ Sodium 250 mls @ 250 mls/hr 03/23/20 21:45 Chloride IV ONETIME ARMAAN Iopamidol 90 ml 03/23/20 21:42 03/23/20 21:43 Isovue-370 (76%) IVPUSH 03/23/20 21:43 90 ml ONETIME ONE Administration Departure - Departure Time of Disposition: 21:55 Condition: Good
[2020-03-23] MEDS ORDERED: Dexamethasone 10 MG/ML SDV IV STA (20:26)
--- NOTE | 2020-03-23 20:32 | CR ---
Chest: Frontal view of the chest was obtained. Comparison: Prior chest x-ray of 11/25/19. Diffuse increased density is seen throughout both sides of the chest involving both upper and lower lungs. Findings are worse on the left side. Heart size and mediastinum are normal. Bony structures are grossly intact. Impression: 1. Diffuse increased density throughout both sides of the chest worse on the left side. Given the history, findings likely represent diffuse viral pneumonia. Diagnostic code #5 This report was dictated in MDT
[2020-03-23 20:39] LABS: BLOOD UREA NITROGEN,BUN 12 mg/dL (7.0-18.0); CARBON DIOXIDE,CO2 24.4 mmol/L (21.0-32.0); CHLORIDE,CL 99 mmol/L (98-107); GLUCOSE RANDOM 110 mg/dL (74-106); POTASSIUM,K 3.8 mmol/L (3.5-5.1); SODIUM,NA 134 mmol/L (136-148)
--- NOTE | 2020-03-23 20:52 | PCM.SN.2 ---
- Free Text/Narrative Note: The patient was presented to me by the mid-level provider, who sees patients independently as a licensed independent practitioner by [facility] and [facility] law. Up until the time that I was consulted and assumed supervision, the mid-level provider had been solely and independently caring for this patient and they were responsible for all aspects of care including performing the history and physical, formulating medical decision making, ordering medications, and ordering and evaluating testing. I have personally and independently seen and evaluated the patient at bedside and, if available, have spoken with the with the family. I agree with the history, physical, medical decision making, and plan of treatment as documented by the mid-level provider. I have performed the medical decision making for this patient, including assessing the results of all diagnostic testing and I have instructed the mid-level provider to document the results and carry through with the treatment plan that I deemed appropriate. If needed, any other comments, a focused physical examination, or my own medical decision making are documented below. In brief, this is a 59-year-old male with a past medical history of autonomic dysfunction and previous positive COVID test on 03/11/2020 presenting with concern for a hoarse voice and worsening dyspnea Noted to be hypoxic to 88% during triage. Bradycardic, which is usual for him. On my exam he denies any chest discomfort or shortness of breath, only complains of general malaise and a hoarse voice. Requiring supplemental nasal cannula oxygen to improve his pulse oximetry readings. Chest x-ray shows diffuse bilateral infiltrates concerning for viral pneumonia type pattern. Does not meet SIRS criteria for sepsis. Lactate is normal. Electrolytes and renal function are reassuring. D-dimer is elevated at 1.87 so the patient will undergo CT pulmonary angiogram. He will need to be admitted to the hospital for acute hypoxic respiratory failure requiring supplemental oxygen. 2156: We initially planned to admit the patient to our hospital, however, our hospitalist is recommending remdesivir, which we do not have here, so patient will need to transfer to another hospital. Patient is requesting be transferred to [facility] in [place]. I spoke with Dr. Zhang at [facility] who agrees to accept the transfer. We are awaiting radiology read of the CT pulmonary angiogram and ambulance availability. 2204: CTPA study shows no pulmonary embolism. Patient will be given IV ceftriaxone and p.o. azithromycin. Patient resting comfortably. We are awaiting EMS transport arrival. Transferred to care of EMS crew in good condition.
[2020-03-23] MEDS ORDERED: Iopamidol 755 Mg/ML 100 ML Bottle IVPUSH ONE (21:42)
[2020-03-23] MEDS ORDERED: cefTRIAXone 1 GM in Premix Bag 1 BAG IV ONE (21:43)
[2020-03-23] MEDS ORDERED: Azithromycin 500 MG in Sodium Chloride 0.9% 250 ML IV SCH (21:45)
[2020-03-23 21:46] VITALS: PULSE 52
--- NOTE | 2020-03-23 21:59 | CT ---
CT chest Technique: Multiple axial sections through the chest were obtained. Intravenous contrast was utilized. Study has been performed as a pulmonary angiogram protocol. Comparison: Prior chest x-ray performed earlier on the same day (8:10 PM). Findings: Pulmonary arteries are fairly well opacified. No filling defects are seen to indicate pulmonary embolism. Aorta shows no aneurysm. Scattered lymph nodes within the mediastinum which are felt to be within normal limits. There is mild adenopathy within the left hilar region most likely reactive from the lung process. Mild coronary artery calcification is seen. Visualized upper abdominal structures showed nothing acute. Diffuse areas of parenchymal consolidation are seen within both upper and lower lobes on both sides of the chest. Findings are worse on the left side. Very minimal pleural effusions are seen on both sides. Bone window settings were reviewed and shows scattered endplate spurring within the spine. Impression: 1. No findings of pulmonary embolism. 2. Mild adenopathy within the left hilar region likely due to the lung process. 3. Diffuse areas of consolidation on both sides of the chest involving both upper and right lower lungs. Findings are worse on the left side. 4. Very minimal bilateral pleural effusions. Diagnostic code #5 This report was dictated in MDT
[2020-03-23] MEDS ORDERED: Azithromycin 250 MG Tab PO ONE (22:03)
[2020-03-23 23:39] VITALS: BP 124/67
== END 2020-03-23 23:30 ==
LOC: MW.ED 19:39
DX: U07.1 COVID-19 (principal); J12.89 Other viral pneumonia; R09.02 Hypoxemia; E66.9 Obesity, unspecified; Z68.34 Body mass index [BMI] 34.0-34.9, adult; Z90.49 Acquired absence of other specified parts of digestive tract; Z79.82 Long term (current) use of aspirin; Z79.899 Other long term (current) drug therapy
CPT/HCPCS: 36415; 71045; 71275; 80053; 82550; 82803; 83605; 84484; 85025; 85379; 85384; 85610; 85730; 86140; 93005; 96365; 96375; 99285; A9270; J0696; J1100; Q9967; 99284

== ENCOUNTER 2020-04-17 13:23 | Emergency (ER) | payer BC, OTHER ==
[2020-04-17] MEDS ORDERED: Sodium Chloride 0.9% 10 ML Syringe FLUSH PRN (13:31)
[2020-04-17] MEDS ORDERED: Sodium Chloride 0.9% 2.5 ML Syringe FLUSH PRN (13:31)
--- NOTE | 2020-04-17 13:48 | EDM.PDOC ---
ED HPI GENERAL MEDICAL PROBLEM - General Chief Complaint: Syncope Stated Complaint: SYNCOPE Time Seen by Provider: 04/17/20 13:28 Source of Information: Reports: Patient History Limitations: Reports: No Limitations - History of Present Illness INITIAL COMMENTS - FREE TEXT/NARRATIVE: HISTORY AND PHYSICAL: History of present illness: Patient is a 59-year-old male who presents to the ED today via EMS with concern of syncope that occurred just prior to arrival to the ED. Patient states that he was walking into the gas station when he began to feel lightheaded and woke up on the ground. Patient states that he does not feel as if he hit his head but was told by a witness that he did hit his head. Patient states that he has a history of autonomic hypotension and he forgot to take 1 of his medications this morning to help with his blood pressure. Patient denies any symptoms or concerns at this time. Patient denies fever, chills, chest pain, shortness of breath, or cough. Denies headache, neck stiff ness, change in vision. Denies nausea, vomiting, abdominal pain, diarrhea, constipation, or dysuria. Has not noted any blood in urine or stool. Patient has been eating and drinking appropriately. Review of systems: As per history of present illness and below otherwise all systems reviewed and negative. Past medical history: As per history of present illness and as reviewed below otherwise noncontributory. Surgical history: As per history of present illness and as reviewed below otherwise noncontributory. Social history: See social history for further information Family history: As per history of present illness and as reviewed below otherwise noncontributory. Physical exam: General: Patient is alert, oriented, and in no acute distress. Patient sitting comfortably on exam table. HEENT: Atraumatic, normocephalic, pupils equal and reactive bilaterally, negative for conjunctival pallor or scleral icterus, mucous membranes moist, TMs normal bilaterally, throat clear, neck supple, nontender, trachea midline. No drooling or trismus noted. No meningeal signs. No hot potato voice noted. Lungs: Clear to auscultation, breath sounds equal bilaterally, chest nontender. Heart: S1S2, regular rate and rhythm without overt murmur Abdomen: Soft, nondistended, nontender. Negative for masses or hepatosplenomegaly. Negative for costovertebral tenderness. Pelvis: Stable nontender. Genitourinary: Deferred. Rectal: Deferred. Skin: Intact, warm, dry. No lesions or rashes noted. Extremities: Atraumatic, negative for cords or calf pain. Neurovascular unremar kable. Neuro: Awake, alert, oriented. Cranial nerves II through XII unremarkable. Cerebellum unremarkable. Motor and sensory unremarkable throughout. Exam nonfocal. Notes: Admission for observation was offered and highly encouraged to patient but he declines at this time. All risks versus benefits discussed with patient and expresses understanding. Signs and symptoms that would prompt return to the ED thoroughly discussed with patient. Discussed importance for follow-up with a primary care provider. Voices understanding and is agreeable to plan of care. Denies any further questions or concerns at this time. Diagnostics: CBC, CMP, UA, EKG, CXR, Trop, head CT, orthostatic vitals Therapeutics: NS Prescription: None Impression: Syncope Hyperglycemia Plan: 1. Encourage frequent sips of fluid to push hydration. Follow-up with a primary care provider as discussed. Return to the ED as needed and as discussed. Definitive disposition and diagnosis as appropriate pending reevaluation and review of above. - Related Data Allergies Allergy/AdvReac Type Severity Reaction Status Date / Time No Known Allergies Allergy Verified 04/17/20 13:43 Home Meds: Home Meds Ascorbic Acid [Vitamin C] 1,000 mg PO BID 03/23/20 [History] Cholecalciferol (Vitamin D3) [Vitamin D3] 2,000 unit IU 03/23/20 [History] Cranberry 0 mg PO DAILY 03/23/20 [History] Fludrocortisone [Fludrocortisone Acetate] 0.1 mg PO DAILY 03/23/20 [History] Midodrine 5 mg PO QID 03/23/20 [History] Multivitamin [Multivitamins] 1 each PO DAILY 03/23/20 [History] [place]-3/DHA/Epa/Fish Oil [[place] 3 500 Softgel] 1 each PO DAILY 03/23/20 [History] Zinc 50 mg PO BID 03/23/20 [History] Past Medical History HEENT History: Reports: Impaired Vision, Other (See Below) Other HEENT History: wears glasses Cardiovascular History: Reports: Other (See Below) Other Cardiovascular History: Autonomic hypotension Respiratory History: Reports: None Other Gastrointestinal History: gallstones found on CT at [place] Genitourinary History: Reports: Neurogenic Bladder, UTI, Recurrent Neurological History: Reports: Neuropathy, Peripheral, Other (See Below) Other Neuro History: autonomic hypotension, inability to sweat except on head Psychiatric History: Reports: None Endocrine/Metabolic History: Reports: Obesity/BMI 30+ Hematologic History: Reports: None - Infectious Disease History Infectious Disease History: Reports: Chicken Pox - Past Surgical History HEENT Surgical History: Reports: Other (See Below) Other HEENT Surgeries/Procedures: jaw surg GI Surgical History: Reports: Appendectomy Male Surgical History: Reports: TURP-Transurethral Resection of Prostate Other Male Surgeries/Procedures: patient self caths Musculoskeletal Surgical History: Reports: Knee Replacement, Other (See Below) Other Musculoskeletal Surgeries/Procedures:: back surgery Social & Family History - Family History Family Medical History: Noncontributory - Caffeine Use Caffeine Use: Reports: None ED ROS GENERAL - Review of Systems Review Of Systems: Comprehensive ROS is negative, except as noted in HPI. ED EXAM, GENERAL - Physical Exam Exam: See Below (see dictation) Course - Vital Signs Last Recorded V/S: Last Vital Signs Temp 96.9 F 04/17/20 13:32 Pulse 79 04/17/20 13:32 Resp 18 04/17/20 13:32 BP 141/79 H 04/17/20 13:32 Pulse Ox 97 04/17/20 13:32 Orthostatic Blood Pressure [ 148/76 Standing] Orthostatic Blood Pressure [ 154/85 Sitting] Orthostatic Blood Pressure [ 170/90 Supine] - Orders/Labs/Meds Orders: Active Orders 24 hr Category Date Time Status EKG Documentation Completion [RC] STAT Care 04/17/20 13:31 Active Orthostatic Vital Signs [RC] ASDIRECTED Care 04/17/20 14:03 Active Sodium Chloride 0.9% [Saline Flush] Med 04/17/20 13:31 Active 10 ml FLUSH ASDIRECTED PRN Sodium Chloride 0.9% [Saline Flush] Med 04/17/20 13:31 Active 2.5 ml FLUSH ASDIRECTED PRN Saline Lock Insert [OM.PC] Stat Oth 04/17/20 13:31 Ordered Medication Orders Sodium Chloride (Saline Flush) 10 ml FLUSH ASDIRECTED PRN PRN Reason: Keep Vein Open Last Admin: 04/17/20 13:53 Dose: 10 ml Documented by: GRUPO Sodium Chloride (Saline Flush) 2.5 ml FLUSH ASDIRECTED PRN PRN Reason: Keep Vein Open Last Admin: 04/17/20 13:53 Dose: 2.5 ml Documented by: GRUPO Labs: Laboratory Tests 04/17/20 04/17/20 04/17/20 Range/Units 13:40 13:40 13:40 WBC 5.60 (4.0-11.0) K/uL RBC 4.95 (4.50-5.90) M/uL Hgb 14.3 (13.0-17.0) g/dL Hct 44.5 (38.0-50.0) % MCV 89.9 (80.0-98.0) fL MCH 28.9 (27.0-32.0) pg MCHC 32.1 (31.0-37.0) g/dL RDW Std Deviation 56.0 (28.0-62.0) fl RDW Coeff of Simone 17 H (11.0-15.0) % Plt Count 174 (150-400) K/uL MPV 9.50 (7.40-12.00) fL Neut % (Auto) 63.6 (48.0-80.0) % Lymph % (Auto) 25.2 (16.0-40.0) % Woodruff % (Auto) 7.9 (0.0-15.0) % Eos % (Auto) 2.9 (0.0-7.0) % Baso % (Auto) 0.4 (0.0-1.5) % Neut # (Auto) 3.6 (1.4-5.7) K/uL Lymph # (Auto) 1.4 (0.6-2.4) K/uL Woodruff # (Auto) 0.4 (0.0-0.8) K/uL Eos # (Auto) 0.2 (0.0-0.7) K/uL Baso # (Auto) 0.0 (0.0-0.1) K/uL Nucleated RBC % 0.0 /100WBC Nucleated RBCs # 0 K/uL Sodium 143 (136-148) mmol/L Potassium 3.6 (3.5-5.1) mmol/L Chloride 106 (98-107) mmol/L Carbon Dioxide 28.0 (21.0-32.0) mmol/L BUN 12 (7.0-18.0) mg/dL Creatinine 1.1 (0.8-1.3) mg/dL Est Cr Clr Drug Dosing 83.03 mL/min Estimated GFR (MDRD) > 60.0 ml/min Glucose 209 H (74-106) mg/dL Hemoglobin A1c 6.3 H (4.5-6.2) % Calcium 8.8 (8.5-10.1) mg/dL Total Bilirubin 1.2 H (0.2-1.0) mg/dL AST 24 (15-37) IU/L ALT 38 (14-63) IU/L Alkaline Phosphatase 79 (46-116) U/L Troponin I < 0.050 (0.000-0.056) ng/mL Total Protein 7.3 (6.4-8.2) g/dL Albumin 3.7 (3.4-5.0) g/dL Globulin 3.6 (2.6-4.0) g/dL Albumin/Globulin Ratio 1.0 (0.9-1.6) Urine Color Urine Appearance Urine pH (5.0-8.0) Ur Specific Graff (1.001-1.035) Urine Protein (NEGATIVE) mg/dL Urine Glucose (UA) (NEGATIVE) mg/dL Urine Ketones (NEGATIVE) mg/dL Urine Occult Blood (NEGATIVE) Urine Nitrite (NEGATIVE) Urine Bilirubin (NEGATIVE) Urine Urobilinogen (<2.0) EU/dL Ur Leukocyte Esterase (NEGATIVE) 04/17/20 Range/Units 13:56 WBC (4.0-11.0) K/uL RBC (4.50-5.90) M/uL Hgb (13.0-17.0) g/dL Hct (38.0-50.0) % MCV (80.0-98.0) fL MCH (27.0-32.0) pg MCHC (31.0-37.0) g/dL RDW Std Deviation (28.0-62.0) fl RDW Coeff of Simone (11.0-15.0) % Plt Count (150-400) K/uL MPV (7.40-12.00) fL Neut % (Auto) (48.0-80.0) % Lymph % (Auto) (16.0-40.0) % Woodruff % (Auto) (0.0-15.0) % Eos % (Auto) (0.0-7.0) % Baso % (Auto) (0.0-1.5) % Neut # (Auto) (1.4-5.7) K/uL Lymph # (Auto) (0.6-2.4) K/uL Woodruff # (Auto) (0.0-0.8) K/uL Eos # (Auto) (0.0-0.7) K/uL Baso # (Auto) (0.0-0.1) K/uL Nucleated RBC % /100WBC Nucleated RBCs # K/uL Sodium (136-148) mmol/L Potassium (3.5-5.1) mmol/L Chloride (98-107) mmol/L Carbon Dioxide (21.0-32.0) mmol/L BUN (7.0-18.0) mg/dL Creatinine (0.8-1.3) mg/dL Est Cr Clr Drug Dosing mL/min Estimated GFR (MDRD) ml/min Glucose (74-106) mg/dL Hemoglobin A1c (4.5-6.2) % Calcium (8.5-10.1) mg/dL Total Bilirubin (0.2-1.0) mg/dL AST (15-37) IU/L ALT (14-63) IU/L Alkaline Phosphatase (46-116) U/L Troponin I (0.000-0.056) ng/mL Total Protein (6.4-8.2) g/dL Albumin (3.4-5.0) g/dL Globulin (2.6-4.0) g/dL Albumin/Globulin Ratio (0.9-1.6) Urine Color YELLOW Urine Appearance CLEAR Urine pH 7.0 (5.0-8.0) Ur Specific Graff 1.020 (1.001-1.035) Urine Protein NEGATIVE (NEGATIVE) mg/dL Urine Glucose (UA) NEGATIVE (NEGATIVE) mg/dL Urine Ketones NEGATIVE (NEGATIVE) mg/dL Urine Occult Blood NEGATIVE (NEGATIVE) Urine Nitrite NEGATIVE (NEGATIVE) Urine Bilirubin NEGATIVE (NEGATIVE) Urine Urobilinogen 0.2 (<2.0) EU/dL Ur Leukocyte Esterase NEGATIVE (NEGATIVE) Meds: Medications Generic Name Dose Route Start Last Admin Trade Name Freq PRN Reason Stop Dose Admin Sodium Chloride 10 ml 04/17/20 13:31 04/17/20 13:53 Saline Flush FLUSH 10 ml ASDIRECTED PRN Administration Keep Vein Open Sodium Chloride 2.5 ml 04/17/20 13:31 04/17/20 13:53 Saline Flush FLUSH 2.5 ml ASDIRECTED PRN Administration Keep Vein Open Discontinued Medications Generic Name Dose Route Start Last Admin Trade Name Freq PRN Reason Stop Dose Admin Sodium Chloride 1,000 mls @ 999 mls/hr 04/17/20 14:01 04/17/20 14:16 Normal Saline IV 04/17/20 15:01 999 mls/hr STAT ONE Administration Departure - Departure Time of Disposition: 15:05 Disposition: Home, Self-Care 01 Clinical Impression: Syncope Qualifiers: Syncope type: unspecified Qualified Code(s): R55 - Syncope and collapse - Discharge Information Forms: ED Department Discharge Additional Instructions: The following information is given to patients seen in the emergency department who are being discharged to home. This information is to outline your options for follow-up care. We provide all patients seen in our emergency department with a follow-up referral. The need for follow-up, as well as the timing and circumstances, are variable depending upon the specifics of your emergency department visit. If you don't have a primary care physician on staff, we will provide you with a referral. We always advise you to contact your personal physician following an emergency department visit to inform them of the circumstance of the visit and for follow-up with them and/or the need for any referrals to a consulting specialist. The emergency department will also refer you to a specialist when appropriate. This referral assures that you have the opportunity for follow-up care with a specialist. All of these measure are taken in an effort to provide you with optimal care, which includes your follow-up. Under all circumstances we always encourage you to contact your private physician who remains a resource for coordinating your care. When calling for follow-up care, please make the office aware that this follow-up is from your recent emergency room visit. If for any reason you are refused follow-up, please contact the [facility] Emergency Department at and asked to speak to the emergency department charge nurse. MELQUIADES [facility] [address] [place] [address] [facility] [address] [place] [address] 1. Encourage frequent sips of fluid to push hydration. Follow-up with a primary care provider as discussed. Return to the ED as needed and as discussed. Sepsis Event Note (ED) - Evaluation Sepsis Screening Result: No Definite Risk - Focused Exam Vital Signs: Vital Signs Temp Pulse Resp BP Pulse Ox 04/17/20 13:32 96.9 F 79 18 141/79 H 97 - My Orders Last 24 Hours: My Active Orders 04/17/20 13:31 EKG Documentation Completion [RC] STAT Sodium Chloride 0.9% [Saline Flush] 10 ml FLUSH ASDIRECTED PRN Sodium Chloride 0.9% [Saline Flush] 2.5 ml FLUSH ASDIRECTED PRN Saline Lock Insert [OM.PC] Stat 04/17/20 14:03 Orthostatic Vital Signs [RC] ASDIRECTED - Assessment/Plan Last 24 Hours: My Active Orders 04/17/20 13:31 EKG Documentation Completion [RC] STAT Sodium Chloride 0.9% [Saline Flush] 10 ml FLUSH ASDIRECTED PRN Sodium Chloride 0.9% [Saline Flush] 2.5 ml FLUSH ASDIRECTED PRN Saline Lock Insert [OM.PC] Stat 04/17/20 14:03 Orthostatic Vital Signs [RC] ASDIRECTED
[2020-04-17] MEDS ORDERED: Sodium Chloride 0.9% 1,000 ML IV ONE (14:01)
[2020-04-17 14:11] LABS: BLOOD UREA NITROGEN,BUN 12 mg/dL (7.0-18.0); CHLORIDE,CL 106 mmol/L (98-107); GLUCOSE RANDOM 209 mg/dL (74-106); POTASSIUM,K 3.6 mmol/L (3.5-5.1); SODIUM,NA 143 mmol/L (136-148)
--- NOTE | 2020-04-17 14:35 | CR ---
Chest: Frontal view of the chest was obtained utilizing portable technique. Comparison: Prior chest CT study of 03/23/20 and chest x-ray performed on the same day. Diffuse parenchymal densities noted previously show improvement. Findings have not yet returned to baseline within the left lung. Heart is accentuated due to portable technique. Upper mediastinum is normal. Bony structures are grossly intact. Impression: 1. Significantly improved chest from previous exam. Findings have not yet returned to baseline within the left lung. 2. Nothing acute is otherwise seen. Diagnostic code #3 This report was dictated in MDT
[2020-04-17 14:45] LABS: HEMOGLOBIN A1C 6.3 % (4.5-6.2)
--- NOTE | 2020-04-17 14:46 | CT ---
Head CT Technique: Multiple axial sections through the brain were obtained. Intravenous contrast was not utilized. Comparison: Prior head CT study of 12/13/19. Findings: Ventricles along with basal cisterns and sulci over the convexities are mildly prominent. Minimal low density area seen within the subcortical white matter within the right posterior frontal region compatible with minimal area of encephalomalacia which is stable. No other abnormal parenchymal densities are seen. No evidence of intracranial hemorrhage. No midline shift or mass-effect is appreciated. Bone window settings were reviewed. Visualized paranasal sinuses and mastoid sinuses show nothing acute. Impression: 1. Nothing acute is seen on noncontrast head CT study. Mild stable senescent change as noted above. Diagnostic code #2 This report was dictated in MDT
[2020-04-17 15:28] VITALS: BP 181/93; PULSE 69
== END 2020-04-17 15:25 | disposition home or self-care (01) ==
LOC: MW.ED 13:23
DX: R55 Syncope and collapse (principal); R73.9 Hyperglycemia, unspecified; E66.9 Obesity, unspecified; G62.9 Polyneuropathy, unspecified; Z90.49 Acquired absence of other specified parts of digestive tract; Z79.899 Other long term (current) drug therapy; Z68.35 Body mass index [BMI] 35.0-35.9, adult
CPT/HCPCS: 36415; 70450; 71045; 80053; 81003; 83036; 84484; 85025; 93005; 96360; 99285; J7030; 99283